=== PATIENT | male | born 1955 | race African-American/Black ===

== ENCOUNTER 2017-11-20 05:54 | Emergency (ER) | payer MEDICARE, MEDICAID ==
[~2017-11-20] VITALS: Ht 185.4 cm; Wt 103.0 kg
[2017-11-20 08:07] LABS: PROTHROMBIN TIME 10.3 sec (9.1-11.1)
[2017-11-20] MEDS ORDERED: MORPHINE SULFATE 4 MG/ML CPJ (NOT FOR IM USE) IV ONE (08:15)
[2017-11-20] MEDS ORDERED: NITROGLYCERIN 0.4MG TABLET SL SL ONE (08:15)
[2017-11-20] MEDS ORDERED: ASPIRIN 325MG EC TABLET PO ONE (08:15)
[2017-11-20 08:17] LABS: CHLORIDE 106 mEq/L (98-107)
[2017-11-20 08:48] LABS: BASOPHILS % 0.7 % (0.0-2.0); EOSINOPHILS % 1.6 % (0.0-5.0); HEMATOCRIT. 42.1 % (42.0-52.0); LYMPHOCYTES % 22.1 % (20.0-50.0); MEAN CORPUSCULAR HEMOGLOBIN 28.7 pg (28.0-32.0); MEAN CORPUSCULAR VOLUME 86.6 fL (80.0-94.0); MONOCYTES % 6.1 % (2.0-8.0); NEUTROPHILS % 69.5 % (40.0-76.0); PLATELET 272 x1000/uL (130-400); RED BLOOD CELL COUNT 4.86 mill/uL (4.7-6.1); RED CELL DISTRIBUTION WIDTH 15.2 % (11.6-14.6)
[2017-11-20 09:18] VITALS: BP 129/86
== END 2017-11-20 09:52 | disposition left against medical advice (07) ==
LOC: ER 06:20 → EDBEDREQTM 09:44 → EDBEDREQ 09:44 → ER 09:52 → ENRESERV 10:04 → CANRESERV 10:04 → CANBEDREQ 20:30
DX: R07.9 Chest pain, unspecified (principal); I10 Essential (primary) hypertension; Z94.1 Heart transplant status; Z88.0 Allergy status to penicillin; Z95.810 Presence of automatic (implantable) cardiac defibrillator
CPT/HCPCS: 36415; 71045; 80053; 83880; 84484; 85025; 85610; 93005; 96374; 99285; J2270

== ENCOUNTER 2022-03-27 09:04 | Emergency (ER) | payer MEDICARE, MEDICAID ==
[~2022-03-27] VITALS: Ht 185.4 cm; Wt 102.0 kg
[2022-03-27] MEDS ORDERED: KETOROLAC 60MG/2ML VIAL IM ONE (10:00)
[2022-03-27] MEDS ORDERED: ACETAMINOPHEN 325MG TABLET PO ONE (10:00)
[2022-03-27] MEDS ORDERED: LIDOCAINE 5% PATCH TOP SCH (10:00)
[2022-03-27 11:12] VITALS: BP 109/83
== END 2022-03-27 12:28 | disposition home or self-care (01) ==
LOC: ER 09:26
DX: M54.59 Other low back pain (principal); G89.11 Acute pain due to trauma; Y04.8XXA Assault by other bodily force, initial encounter; Y93.89 Activity, other specified; Y92.89 Other specified places as the place of occurrence of the external cause; I10 Essential (primary) hypertension; I25.10 Atherosclerotic heart disease of native coronary artery without angina pectoris; Z94.1 Heart transplant status
CPT/HCPCS: 96372; 99283; J1885

== ENCOUNTER 2025-03-26 08:17 | Emergency (ER) | payer MEDICARE, MEDICAID ==
[~2025-03-26] VITALS: Ht 185.4 cm; Wt 95.0 kg
[2025-03-26 08:26] VITALS: O2SAT 98
[2025-03-26 09:36] VITALS: BP 116/68; PULSE 100; RESP 16; TEMP 36.8; O2SAT 98
== END 2025-03-26 09:33 | disposition home or self-care (01) ==
LOC: ER 08:17
DX: S82.832A Other fracture of upper and lower end of left fibula, initial encounter for closed fracture (principal); I10 Essential (primary) hypertension; M19.072 Primary osteoarthritis, left ankle and foot; Z83.3 Family history of diabetes mellitus; Z88.0 Allergy status to penicillin; X50.1XXA Overexertion from prolonged static or awkward postures, initial encounter; Y93.89 Activity, other specified; Y92.89 Other specified places as the place of occurrence of the external cause; Y99.8 Other external cause status
CPT/HCPCS: 29515; 73610; 99283